=== PATIENT | female | born 1975 | race American Indian/Alaskan Native ===

== ENCOUNTER 2017-04-25 20:11 | Emergency (ER) | payer OTHER ==
[2017-04-25 21:37] LABS: Basophils # (Auto) 0.1 K/mm3 (0.0-0.1); Basophils % (Auto) 0.6 % (0.0-1.8); Eosinophils # (Auto) 0.2 K/mm3 (0.0-0.4); Eosinophils % (Auto) 1.6 % (0.0-4.3); Hematocrit 35.4 % (30.3-42.9); Hemoglobin 11.3 gm/dl (10.1-14.3); Lymphocytes # (Auto) 2.9 K/mm3 (1.2-5.4); Lymphocytes % (Auto) 28.8 % (13.4-35.0); Mean Corpuscular HGB Conc 32 % (30-34); Mean Corpuscular Volume 76 fl (79-97); Monocytes # (Auto) 0.5 K/mm3 (0.0-0.8); Monocytes % (Auto) 5.1 % (0.0-7.3); Platelet Count 280 K/mm3 (140-440); Red Blood Count 4.66 M/mm3 (3.65-5.03); Red Cell Distribution Width 15.8 % (13.2-15.2)
[2017-04-25 21:53] LABS: Mean Corpuscular Hemoglobin 24 pg (28-32)
[2017-04-25 21:58] LABS: Alanine Aminotransferase 13 units/L (7-56); Albumin 3.7 g/dL (3.9-5); BUN/Creatinine Ratio 18; Blood Urea Nitrogen 9 mg/dL (7-17); Calcium 9.1 mg/dL (8.4-10.2)
[2017-04-25 21:59] LABS: Hemolysis Index 6
--- NOTE | 2017-04-25 22:27 | XRay Report ---
FINAL REPORT PROCEDURE: XR CHEST ROUTINE 2V TECHNIQUE: PA and lateral chest radiographs were obtained. CPT 17098 HISTORY: Shortness of breath COMPARISON: No prior studies are available for comparison. FINDINGS: Heart: Normal. Mediastinum/Vessels: Normal. Lungs/Pleural space: No infiltrate, effusion, or pneumothorax. Bony thorax: No acute osseous abnormality. Other: IMPRESSION: No pulmonary infiltrates are identified.
[2017-04-25 23:24] LABS: Bilirubin,Urine NEG (Negative); Blood,Urine NEG (Negative); Color,Urine Straw (Yellow); Protein,Urine <15 mg/dL mg/dL (Negative); RBC,Urine < 1.0 /HPF (0.0-6.0); Urobilinogen,Urine < 2.0 mg/dL (<2.0)
[2017-04-26 00:27] VITALS: BP 142/86
[2017-04-26] MEDS ORDERED: NORCO 5/325 PO ONE (00:29)
[2017-04-26] MEDS ORDERED: TORADOL IM ONE (00:30)
--- NOTE | 2017-04-26 00:37 | Emergency Department Report ---
HPI - General Chief Complaint: Abdominal Pain Time Seen by Provider: 04/26/17 00:13 - HPI HPI: 41-year-old [place] female presents to the emergency department, dropped off by her to be seen, with complaint of some lower abdominal discomfort, dizziness, headache, edema, and palpitations. The patient says that she started "not feeling well" yesterday but the palpitations and headache started today. The headache is left sided and posterior and also involves the left lateral neck and she says "it feels like it's pulling down on my scalp." She denies any vision change, slurred speech or any neurological deficits. The abdominal pain is in the lower abdomen and she had some nausea without vomiting earlier today but she denies any dysuria, vaginal bleeding, vaginal discharge. She did not take anything for her symptoms prior to presentation. She has a past medical history of insulin-dependent diabetes, also on metformin, as well as polycystic ovarian syndrome. Her primary care physician is Dr. Marco A patricia but she has not seen them regarding her symptoms. No recent travel or sick contacts at home. ED Past Medical Hx - Past Medical History Previous Medical History?: Yes Hx Diabetes: Yes Additional medical history: PCOS - Surgical History Past Surgical History?: Yes Additional Surgical History: HipX2 - Social History Smoking Status: Never Smoker Substance Use Type: None ED Review of Systems ROS: Stated complaint: ABD PAIN; DIZZINESS Other details as noted in HPI Comment: All other systems reviewed and negative Constitutional: denies: chills, fever Eyes: denies: eye pain, eye discharge, vision change ENT: denies: ear pain, throat pain Respiratory: denies: cough, shortness of breath, wheezing Cardiovascular: palpitations, edema. denies: chest pain Gastrointestinal: abdominal pain, nausea. denies: vomiting Genitourinary: denies: urgency, dysuria, discharge Musculoskeletal: denies: back pain Skin: denies: rash, lesions Neurological: headache. denies: numbness, paresthesias Physical Exam - Physical Exam Vital Signs: Vital Signs 04/25/17 04/26/17 21:10 00:26 Temperature 98.4 F 98.4 F Pulse Rate 102 H 96 H Respiratory 20 20 Rate Blood Pressure 136/80 Blood Pressure 142/86 [Left] O2 Sat by Pulse 98 100 Oximetry Physical Exam: GENERAL: The patient is well-developed well-nourished. HENT: Normocephalic. Atraumatic. Patient has moist mucous membranes. EYES: Extraocular motions are intact. Pupils equal reactive to light bilaterally. No nystagmus. NECK: Supple. Trachea is midline. Full range of motion. No posterior midline tenderness to palpation. There is some reproducible left lateral tenderness along the cervical muscles with some topical musculature. CHEST/LUNGS: Clear to auscultation. There is no respiratory distress noted. HEART/CARDIOVASCULAR: Regular. There is no tachycardia. There is no murmur. ABDOMEN: Abdomen is soft, nontender. No guarding. Patient has normal bowel sounds. Morbidly obese habitus. SKIN: Skin is warm and dry. NEURO: The patient is awake, alert, and oriented. The patient is cooperative. The patient has no focal neurologic deficits. The patient has normal speech. MUSCULOSKELETAL: There is no tenderness or deformity. There is no limitation range of motion. There is no evidence of acute injury. ED Course Vital Signs 04/25/17 04/26/17 21:10 00:26 Temperature 98.4 F 98.4 F Pulse Rate 102 H 96 H Respiratory 20 20 Rate Blood Pressure 136/80 Blood Pressure 142/86 [Left] O2 Sat by Pulse 98 100 Oximetry ED Medical Decision Making - Lab Data Result diagrams: 04/25/17 21:21 04/25/17 21:21 - EKG Data -: EKG Interpreted by Me EKG shows normal: sinus rhythm, axis, intervals, QRS complexes, ST-T waves Rate: normal - EKG Data When compared to previous EKG there are: previous EKG unavailable Interpretation: normal EKG - Radiology Data Radiology results: image reviewed interpreted by me: Chest x-ray does not show any acute process. There are no pleural effusions, obvious pneumonia and there is no pneumothorax. Abdominal x-ray shows some nonspecific nonobstructive bowel gas. There is also a moderate amount of stool throughout the colon. - Medical Decision Making The patient presents with many different complaints. Overall the patient does not appear in any acute distress. Regarding her palpitations, she has a normal heart rate at this time but said she had a heart rate of about 130 earlier today. EKG does not show any signs of ST elevation [place], ischemia or dysrhythmia. Chest x-ray does not show any acute process. She also has a normal thyroid function. Regarding her lower abdominal pain. She did not really have any tenderness to palpation on examination. Abdominal x-ray shows increased stool but otherwise nonobstructive nonspecific bowel gas and no acute process. The belly labs including bilirubin, lipase and LFTs are normal. She does not have any urinary tract infection and she is not . The patient complains of a headache that feels like it is pulling down on her scalp from the neck. She has some reproducible cervical muscle tenderness with top musculature. This appears most consistent with a tension headache. She does not have any focal, motor or sensory deficits in her cranial nerves are intact. I did not feel that a CT scan of the head was necessary at this time. However if the patient's headache returns or worsens or she develops any neurological deficits, she will need to return to the emergency department immediately for further evaluation. Patient has been dealing with some elevated blood sugar. She came in at about 310 and was down to about 280 without any insulin given here. There was not any significant elevated anion gap and the patient did not have any ketones in her urine and therefore is low suspicion for DKA. Prior to discharge, the patient was given 4 units of regular insulin subcutaneous. She will go home and check her blood sugar and will continue her normal regimen starting in the morning. She has good follow- up with a primary care physician. Vital signs stable throughout her course including being afebrile. The patient was reevaluated and says she is feeling improved. She was seen ambulatory prior to discharge and appeared stable. She will return to the ER with any worsening of her symptoms or any acute distress. - Differential Diagnosis tension headache, migraine, DKA, HHNK Critical Care Time: No Critical care attestation.: If time is entered above; I have spent that time in minutes in the direct care of this critically ill patient, excluding procedure time. ED Disposition Clinical Impression: Hyperglycemia, Palpitations Headache Qualifiers: Headache type: unspecified Headache chronicity pattern: unspecified pattern Intractability: not intractable Qualified Code(s): R51 - Headache Abdominal pain Qualifiers: Abdominal location: lower abdomen, unspecified Qualified Code(s): R10.30 - Lower abdominal pain, unspecified Disposition: DC-01 TO HOME OR SELFCARE Is pt being admited?: No Condition: Stable Instructions: Palpitations (ED), Acute Headache (ED), Abdominal Pain (ED), Diabetic Hyperglycemia (ED) Additional Instructions: Please follow-up with your primary care physician in the next few days. Return to the emergency Department with any worsening of your symptoms or any acute distress. Please check your blood sugar when you get home tonight and when you wake up in the morning. Try and stay away from foods that are high in sugar, starches and carbohydrates to help with your blood sugar. Keep a blood sugar log. I have given you a referral for a local residential sales consultant, Dr. Womack, to follow-up regarding her palpitations. Return to the emergency Department with any worsening of your symptoms or any acute distress. Referrals: KINA WOMACK MD [Staff Physician] - 3-5 Days PCP, Your [Other] - 3-5 Days Time of Disposition: 02:33
--- NOTE | 2017-04-26 01:40 | XRay Report ---
FINAL REPORT EXAM: XR ABDOMEN 2V HISTORY: Abdominal pain TECHNIQUE: Supine and upright views of the abdomen were obtained. PRIORS: None FINDINGS: Nonobstructive bowel gas pattern. No free intraperitoneal air appreciated. Moderate volume formed colonic stool. Intrauterine device overlies central pelvis. Incidental phleboliths. No acute osseous abnormality. IMPRESSION: No evidence of bowel obstruction or perforation. Moderate volume formed colonic stool.
== END 2017-04-26 02:58 | disposition home or self-care (01) ==
LOC: ED 20:11
DX: E11.65 Type 2 diabetes mellitus with hyperglycemia (principal); R00.2 Palpitations; R51 Headache; R10.30 Lower abdominal pain, unspecified; E28.2 Polycystic ovarian syndrome; Z91.040 Latex allergy status
CPT/HCPCS: 36415; 71046; 74019; 80053; 81001; 82805; 82962; 83880; 84443; 84703; 85025; 93005; 93010; 96372; 99284; J1885; J1815